=== PATIENT | female | born 1970 | race Caucasian/White ===

== ENCOUNTER 2016-11-01 17:49 | Emergency (ER) | payer MEDICAID ==
[~2016-11-01 17:49] MED LIST: AMLO10TA80 PO; ATOR10TA PO; CINA90TA PO; FAMO40TA7 PO; INSU3INS8 SUBCUT; LISI-604 PO; SEVE800T PO
== END 2016-11-01 22:42 | disposition left against medical advice (07) ==
LOC: ER 20:55
DX: M54.5 Low back pain (principal); Z53.21 Procedure and treatment not carried out due to patient leaving prior to being seen by health care provider

== ENCOUNTER 2017-03-02 11:42 | Emergency (ER) | payer MEDICAID, OTHER ==
[~2017-03-02] VITALS: Ht 165.1 cm; Wt 126.0 kg
[2017-03-02] MEDS ORDERED: ONDANSETRON HCL 4MG/2ML VIAL IV STA (13:55)
[2017-03-02] MEDS ORDERED: ASPIRIN 81MG TABLET PO STA (13:55)
[2017-03-02] MEDS ORDERED: SODIUM CHLORIDE 0.9% 1,000 ML IV ONE (13:55)
[2017-03-02] MEDS ORDERED: MORPHINE SULFATE 4 MG/ML CPJ (NOT FOR IM USE) IV STA (13:55)
[2017-03-02 14:43] LABS: BASOPHILS % 0.6 % (0.0-2.0); HEMATOCRIT. 36.7 % (36.0-48.0); HEMOGLOBIN. 12.3 g/dL (12.0-16.0); LYMPHOCYTES % 16.4 % (20.0-50.0); MEAN CORPUSCULAR HEMOGLOBIN 30.7 pg (28.0-32.0); MEAN CORPUSCULAR VOLUME 91.6 fL (81.0-99.0); MEAN PLATELET VOLUME 8.6 fl (7.4-10.4); MONOCYTES % 6.4 % (2.0-8.0); NEUTROPHILS % 74.6 % (40.0-76.0); PLATELET 210 x1000/uL (130-400); RED BLOOD CELL COUNT 4.01 mill/uL (4.2-5.4); RED CELL DISTRIBUTION WIDTH 15.7 % (11.6-14.6)
[2017-03-02 14:48] LABS: PARTIAL THROMBOPLASTIN TIME 27.8 sec (24.0-34.0); PROTHROMBIN TIME 10.6 sec
[2017-03-02 14:54] LABS: CARBON DIOXIDE 31 mEq/L (21-32); CHLORIDE 97 mEq/L (98-107); TROPONIN I 0.05 ng/mL (0.00-0.04)
[2017-03-02 16:55] LABS: HCG SCREEN NEGATIVE
[2017-03-02 18:46] VITALS: BP 145/66
== END 2017-03-02 18:47 | disposition home or self-care (01) ==
LOC: ER 14:27
DX: R10.9 Unspecified abdominal pain (principal); K59.00 Constipation, unspecified; I12.9 Hypertensive chronic kidney disease with stage 1 through stage 4 chronic kidney disease, or unspecified chronic kidney disease; E11.22 Type 2 diabetes mellitus with diabetic chronic kidney disease; I51.7 Cardiomegaly; I25.10 Atherosclerotic heart disease of native coronary artery without angina pectoris; R58 Hemorrhage, not elsewhere classified; N18.9 Chronic kidney disease, unspecified; E11.9 Type 2 diabetes mellitus without complications; Z79.4 Long term (current) use of insulin; Z99.2 Dependence on renal dialysis
CPT/HCPCS: 36415; 71010; 74176; 80053; 82962; 83690; 84484; 84703; 85025; 85610; 85730; 87040; 93005; 96361; 96374; 96375; 99285; J2270; J2405; Z7610; J7030

== ENCOUNTER 2017-06-15 05:25 | Emergency (ER) | payer OTHER ==
[2017-06-15] VITALS (18 sets, daily range): BP systolic 155–226; BP diastolic 46–79
[~2017-06-15] VITALS: Ht 157.5 cm; Wt 131.0 kg
[~2017-06-15 05:25] MED LIST changes: +REN800 PO; -SEVE800T PO
[2017-06-15 07:00] LABS: BASOPHILS % 0.6 % (0.0-2.0); HEMATOCRIT. 34.5 % (36.0-48.0); HEMOGLOBIN. 11.6 g/dL (12.0-16.0); LYMPHOCYTES % 17.5 % (20.0-50.0); MEAN CORPUSCULAR HEMOGLOBIN 30.9 pg (28.0-32.0); MEAN CORPUSCULAR VOLUME 92.4 fL (81.0-99.0); MEAN PLATELET VOLUME 9.5 fl (7.4-10.4); MONOCYTES % 4.4 % (2.0-8.0); NEUTROPHILS % 75.5 % (40.0-76.0); PLATELET 167 x1000/uL (130-400); RED BLOOD CELL COUNT 3.74 mill/uL (4.2-5.4); RED CELL DISTRIBUTION WIDTH 14.4 % (11.6-14.6)
[2017-06-15 07:04] LABS: PROTHROMBIN TIME 10.1 sec (9.4-11.6)
[2017-06-15 07:19] LABS: CARBON DIOXIDE 28 mEq/L (21-32); CHLORIDE 94 mEq/L (98-107)
[2017-06-15] MEDS ORDERED: SODIUM POLYSTYRENE SULFONATE 15 G/60 ML BOT PO ONE (07:45)
[2017-06-15] MEDS ORDERED: DEXTROSE 50% WATER 50ML SYRINGE IV ONE (07:45)
[2017-06-15] MEDS ORDERED: INSULIN REGULAR (HUMULIN R) 300UNITS/3ML IV ONE ×2 (07:45)
[2017-06-15] MEDS ORDERED: CEFAZOLIN 1000MG PREMIX 50 ML IV ONE ×2 (09:10→10:15)
[2017-06-15] MEDS ORDERED: MIDAZOLAM HCL 2 MG/2 ML VIAL ONE (09:10)
[2017-06-15] MEDS ORDERED: FENTANYL CITRATE/PF 50MCG/ML 2ML VIAL ONE (09:10)
[2017-06-15] MEDS ORDERED: HEPARIN 1000 UNITS/ML 10ML ONE (09:11)
[2017-06-15] MEDS ORDERED: LIDOCAINE HCL 1% 20ML VIAL (Pyxis) INJ ONE ×2 (09:11→09:49)
[2017-06-15] MEDS ORDERED: IOHEXOL-300 100 ML BOTTLE ONE (09:11)
[2017-06-15] MEDS ORDERED: SODIUM BICARBONATE 4% (2.4MEQ) 5ML VIAL IV ONE (09:11)
[2017-06-15] MEDS ORDERED: MIDAZOLAM HCL 2 MG/2 ML VIAL IV ONE (10:15)
[2017-06-15] MEDS ORDERED: FENTANYL CITRATE/PF 50MCG/ML 2ML VIAL IV ONE (10:15)
== END 2017-06-15 12:45 | disposition home or self-care (01) ==
LOC: ER 05:25
DX: T82.898A Other specified complication of vascular prosthetic devices, implants and grafts, initial encounter (principal); E11.22 Type 2 diabetes mellitus with diabetic chronic kidney disease; E11.65 Type 2 diabetes mellitus with hyperglycemia; I12.0 Hypertensive chronic kidney disease with stage 5 chronic kidney disease or end stage renal disease; N18.6 End stage renal disease; E87.5 Hyperkalemia; E87.1 Hypo-osmolality and hyponatremia; Z99.2 Dependence on renal dialysis; Z79.4 Long term (current) use of insulin; Y84.1 Kidney dialysis as the cause of abnormal reaction of the patient, or of later complication, without mention of misadventure at the time of the procedure; Y92.89 Other specified places as the place of occurrence of the external cause
CPT/HCPCS: 36415; 36558; 36901; 76937; 77001; 80053; 82962; 85025; 85610; 93005; 96365; 96375; 99285; C1750; C1766; C1769; C1887; J0690; J1642; J1644; J1815; J2250; J3010; J3490; J7050; Q9967; Z7610